=== PATIENT | male | born 1945 | race Caucasian/White ===

== ENCOUNTER 2019-08-08 08:24 | Outpatient (CLI) | payer OTHER ==
[~2019-08-08 08:24] MED LIST: COZAAR100 MG; FLONASE16 G1 NS; KETO10TA2 PO; LIPITOR20 MG; OMEPRAZOLE40 MG; ZANTAC300 MG PO
== END 2019-08-08 08:33 | disposition home or self-care (01) ==
LOC: LAB 08:24
DX: N40.1 Benign prostatic hyperplasia with lower urinary tract symptoms (principal); R92.2 Inconclusive mammogram

== ENCOUNTER 2019-08-08 09:21 | Outpatient (CLI) | payer OTHER | END 2019-08-08 09:54 | disposition home or self-care (01) | LOC: SONOGRAMA 09:21 | DX: N28.1 Cyst of kidney, acquired (principal) ==

== ENCOUNTER 2020-01-18 13:37 | Outpatient (CLI) | payer OTHER | END 2020-01-18 13:40 | disposition home or self-care (01) | LOC: LAB 13:37 | DX: D64.0 Hereditary sideroblastic anemia (principal); J11.1 Influenza due to unidentified influenza virus with other respiratory manifestations ==

== ENCOUNTER 2020-02-06 09:29 | Outpatient (CLI) | payer OTHER | END 2020-02-06 09:32 | disposition home or self-care (01) | LOC: RAD 09:29 | DX: J44.1 Chronic obstructive pulmonary disease with (acute) exacerbation (principal); J11.1 Influenza due to unidentified influenza virus with other respiratory manifestations ==

== ENCOUNTER 2020-06-18 11:55 | Outpatient (CLI) | payer OTHER | END 2020-06-18 11:59 | disposition home or self-care (01) | LOC: RAD 11:55 | PROVIDERS: ATTEND Internal Medicine Cardiovascular Disease | DX: J44.9 Chronic obstructive pulmonary disease, unspecified (principal) ==

== ENCOUNTER 2020-12-31 11:29 | Outpatient (CLI) | payer OTHER | END 2020-12-31 14:05 | disposition home or self-care (01) | LOC: RAD 11:29 | PROVIDERS: ATTEND Surgery Surgery of the Hand | DX: M50.323 Other cervical disc degeneration at C6-C7 level (principal); M65.4 Radial styloid tenosynovitis [de Quervain] ==

== ENCOUNTER → 2021-03-06 | Outpatient (CLI) | payer OTHER | END | disposition home or self-care (01) | LOC: RAD 14:10 | PROVIDERS: ATTEND Orthopaedic Surgery | DX: M25.561 Pain in right knee (principal); M25.562 Pain in left knee ==

== ENCOUNTER 2022-02-10 11:52 | Outpatient (CLI) | payer OTHER | END 2022-02-10 11:54 | disposition home or self-care (01) | LOC: SONOGRAMA 11:52 | PROVIDERS: ATTEND Urology | DX: N28.1 Cyst of kidney, acquired (principal) ==

== ENCOUNTER 2022-07-11 09:53 | Outpatient (CLI) | payer OTHER | END 2022-07-11 09:57 | disposition home or self-care (01) | LOC: RAD 09:53 | PROVIDERS: ATTEND Orthopaedic Surgery Adult Reconstructive Orthopaedic Surgery | DX: I11.9 Hypertensive heart disease without heart failure (principal) ==

== ENCOUNTER 2022-11-24 15:06 | Outpatient (CLI) | payer OTHER | END 2022-11-24 15:10 | disposition home or self-care (01) | LOC: RAD 15:06 | PROVIDERS: ATTEND Orthopaedic Surgery Adult Reconstructive Orthopaedic Surgery | DX: Z96.652 Presence of left artificial knee joint (principal) ==

== ENCOUNTER 2025-03-11 05:50 | Emergency (ER) | payer OTHER ==
[~2025-03-11] VITALS: Ht 152.4 cm; Wt 79.4 kg
[~2025-03-11 05:50] MED LIST changes: +ETODOLAC500 MG PO; +ZANAFLEX2 MG PO
[2025-03-11] MEDS ORDERED: 0.9 % SODIUM CHLORIDE 1,000 ML IV STA (06:58)
[2025-03-11] MEDS ORDERED: KETOROLAC TROMETHAMINE 30 MG VIAL IV STA (06:59)
[2025-03-11] MEDS ORDERED: HYOSCYAMINE SULFATE 0.125 MG TAB.SUBL SL ONE (07:00)
[2025-03-11] MEDS ORDERED: MORPHINE SULFATE 4 MG/ML VIAL IV STA (07:00)
[2025-03-11] MEDS ORDERED: HYOSCYAMINE SULFATE 0.125 MG TAB.SUBL ONE (07:37)
[2025-03-11] MEDS ORDERED: KETOROLAC TROMETHAMINE 30 MG VIAL ONE (07:37)
[2025-03-11] MEDS ORDERED: BARIUM SULFATE 450 ML ORAL.SUSP PO ONE (08:09)
[2025-03-11 09:11] LABS: INR 1.04; PARTIAL THROMBOPLASTIN TIME 25.5 SECONDS (22.0-34.0); PROTHROMBIN TIME 11.3 SECONDS (9.0-11.5)
[2025-03-11 09:25] LABS: ALBUMIN 4.3 gm/dL (3.4-5.0); BILIRUBIN TOTAL 0.56 mg/dL (0.3-1.2); CALCIUM 9.4 mg/dL (8.5-10.1); CREATININE SERUM 0.97 mg/dL (0.70-1.30); GFR 74.66; POTASSIUM 4.03 mEq/L (3.5-5.1); TOTAL PROTEIN 7.3 gm/dL (6.4-8.2)
[2025-03-11 09:29] LABS: BASO % 0.3 % (0.1-1.2); EOS # 0.03 (0.04-0.54); EOS % 0.2 % (0.7-7.0); HEMOGLOBIN 15.2 g/dL (13.7-17.5); LYMPH # 0.93 (1.18-3.74); LYMPH % 7.4 % (19.3-53.1); MEAN CORPUSCULAR HEMOGLOBIN 31.7 pg (25.6-32.2); MONO # 0.78 (0.24-0.82); MONO % 6.2 % (4.7-12.5); NEUT # 10.71 (1.56-6.13); NEUT % 85.5 % (34.0-71.1); PLATELET COUNT 187 K/uL (163-369)
[2025-03-11] MEDS ORDERED: MINERAL OIL 30 ML BLIST.PACK PO ONE (17:30)
[2025-03-11] MEDS ORDERED: MAGNESIUM HYDROXIDE 400 MG/5 ML ML PO ONE (17:30)
[2025-03-11] MEDS ORDERED: MAGNESIUM HYDROXIDE 30 ML BLIST.PACK PO ONE (17:55)
[2025-03-11] MEDS ORDERED: MINERAL OIL 30 ML BLIST.PACK ONE (17:55)
== END 2025-03-11 18:09 | disposition home or self-care (01) ==
LOC: ER 06:11
DX: K59.00 Constipation, unspecified (principal); R10.32 Left lower quadrant pain; R10.9 Unspecified abdominal pain
CPT/HCPCS: 36415; 74022; 74177; 96365; 96366; 99284; J1885; J2270; J7030; Q9965